=== PATIENT | female | born 1950 ===

== ENCOUNTER → 2020-04-13 | Day surgery (SDC) | payer OTHER ==
[~2020-04-13] MED LIST: SIMVASTATIN20 MG PO
== END | disposition home or self-care (01) ==
LOC: ADM 04-07 08:30 → CIR.AMB 08:30
PROVIDERS: ATTEND Colon & Rectal Surgery
DX: K64.8 Other hemorrhoids (principal); K64.4 Residual hemorrhoidal skin tags; Z20.828 Contact with and (suspected) exposure to other viral communicable diseases